=== PATIENT | female | born 1995 | race Caucasian/White ===

== ENCOUNTER 2017-04-25 16:45 | Emergency (ER) | payer BC ==
[~2017-04-25] VITALS: Ht 175.3 cm; Wt 119.4 kg
[~2017-04-25 16:45] MED LIST: AMT50 PO; DOXY100C76 PO; EFF/375 PO; GLC/500 PO
[2017-04-25 17:14] VITALS: TEMP 37.1; Ht 175.3 cm; Wt 119.4 kg
[2017-04-25] MEDS ORDERED: NORE0.1T PO (17:43)
[2017-04-25] MEDS ORDERED: IBUPROFEN 800 MG TAB PO STA (18:28)
[2017-04-25] MEDS ORDERED: ACETAMINOPHEN 500 MG TAB PO STA (18:28)
--- NOTE | 2017-04-25 18:52 | EMERGENCY ROOM VISIT NOTE ---
History Report prepared by Wes: Sahil Pantoja Under the Supervision of: Dr. Dany Love M.D. First contact with patient: 17:59 Chief Complaint: NECK PAIN Stated Complaint: NECK, JAW, ARM PAIN, STIFF NECK HEADACHE History of Present Illness The patient is a 22 year old white female with a past medical history of PCOS, tonsillitis, adenoidectomy, and shingles who presents to the ED with a cc of burning worsening neck pain beginning four days ago. Positive arm pain, neck pain, back pain, ear pain, rash, and nausea with the pain. Negative fever, chills, recent bites, new creams, new detergents, recent travels, cough, vomiting, congestion, sore throat, or itchiness. She does not take any medications, and her last period ended last week. She took Tylenol which did not help. She states that she occasionally drinks alcohol. Source of History: patient Onset: four days ago Position: neck Quality: burning Timing: worsening Associated Symptoms: + neck pain, + nausea, + back pain, + rash, No fevers, No chills, No sorethroat, No cough, No vomiting Note: Associated symptoms: ear pain, arm pain Review of Systems See HPI for pertinent positives and negatives. A total of ten systems were reviewed and were otherwise negative. Past Medical & Surgical Medical Problems: (1) Bronchitis (2) Depression (3) Panic attacks Surgical Problems: (1) History of adenoidectomy (2) Hx of tonsillectomy Family History No pertinent family history Social History Smoking Status: Never Smoker Alcohol Use: occasionally Drug Use: none Marital Status: single Occupation Status: employed Current/Historical Medications Scheduled Norethindrone & Eth Estradiol (Alyacen ), 1 TAB PO DAILY Valacyclovir Hcl (Valtrex), 1 GM PO TID Allergies Coded Allergies: No Known Allergies (Unverified , 08/26/15) Physical Exam Vital Signs Date Time Temp Pulse Resp B/P (MAP) Pulse Ox O2 Delivery O2 Flow Rate FiO2 04/25/17 20:13 75 18 135/85 100 04/25/17 19:02 78 18 137/85 100 Room Air 04/25/17 17:14 37.1 75 18 168/105 97 Room Air Physical Exam GENERAL: Awake, alert, obese, well-appearing, NAD HENT: Posterior pharynx is clear. No tonsillar exudate or swelling..No uvular deviation. No stridor. Normocephalic, atraumatic. EYES: Normal conjunctiva. Sclera non-icteric. NECK: Small blanching macular area over the left lower neck approximately 1cm around. No fluctuance. No tenderness or masses. Supple. No nuchal rigidity. FROM. RESPIRATORY: CTAB, no rhonchi, wheezing, crackles CARDIAC: RRR, no MRG ABDOMEN: Soft, NTND, BS+ MSK: No chest wall TTP, no LE edema NEURO: GCS 15, CN 2-12 intact, moves all 4s on command SKIN: No rash or jaundice noted. Medical Decision & Procedures ER Provider Diagnostic Interpretation: Radiology results as stated below per my review and radiologist interpretation: CHEST 2 VIEWS ROUTINE CLINICAL HISTORY: neck/chest pain pain COMPARISON STUDY: No previous studies for comparison. FINDINGS: The bones soft tissues and hemidiaphragms are normal. The cardiomediastinal silhouette is normal. The lungs are clear. The pulmonary vasculature is normal. IMPRESSION: Negative chest. The above report was generated using voice recognition software. It may contain grammatical, syntax or spelling errors. Electronically signed by: Carlos Luu M.D. 04/25/2017 7:35 PM Dictated Date/Time: 04/25/2017 7:35 PM Laboratory Results 04/25/17 18:40 Red Blood Count 4.65, Mean Corpuscular Volume 91.8, Mean Corpuscular Hemoglobin 31.0, Mean Corpuscular Hemoglobin Concent 33.7, Mean Platelet Volume 11.1, Neutrophils (%) (Auto) 63.6, Lymphocytes (%) (Auto) 28.4, Monocytes (%) (Auto) 7.1, Eosinophils (%) (Auto) 0.3, Basophils (%) (Auto) 0.3, Neutrophils # (Auto) 6.66, Lymphocytes # (Auto) 2.97, Monocytes # (Auto) 0.74, Eosinophils # (Auto) 0.03, Basophils # (Auto) 0.03 04/25/17 18:40 Test 04/25/17 18:40 White Blood Count 10.46 K/uL (4.8-10.8) Red Blood Count 4.65 M/uL (4.2-5.4) Hemoglobin 14.4 g/dL (12.0-16.0) Hematocrit 42.7 % (37-47) Mean Corpuscular Volume 91.8 fL (80-100) Mean Corpuscular Hemoglobin 31.0 pg (25-34) Mean Corpuscular Hemoglobin Concent 33.7 g/dl (32-36) Platelet Count 322 K/uL (130-400) Mean Platelet Volume 11.1 fL (7.4-10.4) Neutrophils (%) (Auto) 63.6 % Lymphocytes (%) (Auto) 28.4 % Monocytes (%) (Auto) 7.1 % Eosinophils (%) (Auto) 0.3 % Basophils (%) (Auto) 0.3 % Neutrophils # (Auto) 6.66 K/uL (1.4-6.5) Lymphocytes # (Auto) 2.97 K/uL (1.2-3.4) Monocytes # (Auto) 0.74 K/uL (0.11-0.59) Eosinophils # (Auto) 0.03 K/uL (0-0.5) Basophils # (Auto) 0.03 K/uL (0-0.2) RDW Standard Deviation 43.9 fL (36.4-46.3) RDW Coefficient of Variation 13.2 % (11.5-14.5) Immature Granulocyte % (Auto) 0.3 % Immature Granulocyte # (Auto) 0.03 K/uL (0.00-0.02) Anion Gap 6.0 mmol/L (3-11) Est Creatinine Clear Calc Drug Dose 154.9 ml/min Estimated GFR () 124.2 Estimated GFR (Non- 107.2 BUN/Creatinine Ratio 9.1 (10-20) Calcium Level 9.3 mg/dl (8.5-10.1) Laboratory results reviewed by me Medications Administered Medications (Trade) Dose Ordered Sig/Isidro Route Start Time Stop Time Status Last Admin Dose Admin Diphenhydramine HCl (Benadryl Cap) 50 mg NOW ONCE PO 04/25/17 18:30 04/25/17 18:31 DC 04/25/17 19:01 50 MG Ibuprofen (Motrin Tab) 800 mg QID STAT PO 04/25/17 18:28 04/25/17 18:30 DC 04/25/17 19:01 800 MG Acetaminophen (Tylenol Tab) 1,000 mg NOW STAT PO 04/25/17 18:28 04/25/17 18:30 DC 04/25/17 19:02 1,000 MG ECG Indication: other (neck pain) Rate (beats per minute): 74 Rhythm: normal sinus Findings: other (Normal intervals. T wave flattening in lead 3, no other continuous changes. No STS changes or TWI) ED Course 1819: The patient was evaluated in room C8. A complete history and physical exam was performed. 1827: Tylenol Tab 1000mg PO, Ibuprofen 800mg PO 1829: Benadryl Cap 50mg PO 1930: I reevaluated the patient, and she states that she is concerned for shingles. 1948: I reevaluated the patient. Discussed results and discharge instructions: She verbalized understanding and agreement. The patient is ready for discharge. Medical Decision The patient is a 22 year old white female with a past medical history of PCOS, tonsillitis, adenoidectomy, and shingles who presents to the ED with a cc of burning worsening neck pain beginning four days ago. Positive arm pain, neck pain, back pain, ear pain, rash, and nausea with the pain. Negative fever, chills, recent bites, new creams, new detergents, recent travels, cough, vomiting, congestion, sore throat, or itchiness. Triage Nursing notes reviewed. The patient's presentation and history were concerning for allergic reaction, insect bite, lymphadenitis, cellulitis, and folliculitis. Patient was seen and evaluated at the bedside. Patient did complain of some mild neck pain. Patient did not have a history of physical concerning for ACS. Patient's EKG was also fairly normal. Patient had a negative chest x-ray. Patient is Wells negative for PE CPE less likely. Patient denies any recent bites but this appears as though it may have been a possible bite or even an allergic reaction. Patient's area of redness less concerning for a cellulitis or even a folliculitis there is no central area of fluctuance. Patient has a prior history of herpes zoster the patient was given a prescription and told that if this worsens she may begin taking it. Patient was injured follow-up discharge, the terms cautions. Patient care patient was safely discharged home. Medication Reconcilliation Current Medication List: was personally reviewed by me Blood Pressure Screening Patient's blood pressure: Elevated blood pressure Blood pressure disposition: Elevated BP felt to be situational Impression Primary Impression: Allergic reaction Additional Impression: Skin irritation Scribe Attestation The scribe's documentation has been prepared under my direction and personally reviewed by me in its entirety. I confirm that the note above accurately reflects all work, treatment, procedures, and medical decision making performed by me. Departure Information Dispostion Home / Self-Care Prescriptions Valacyclovir Hcl (VALTREX) 1 Gm Tab 1 GM PO TID for 7 Days, #21 TAB Prov: Dany Love M.D. 04/25/17 Referrals Tamika Lux PA-C (PCP) Forms HOME CARE DOCUMENTATION FORM, IMPORTANT VISIT INFORMATION, WORK / SCHOOL INSTRUCTIONS Patient Instructions My [facility], Shingles Herpes Zoster Additional Instructions Please return to the emergency department if you have worsening or recurrent symptoms not amenable to at-home treatment. Please call for a follow-up appointment with her primary care physician. Please take your medications as prescribed. If you have other concerns and/or complaints please feel free to also call your primary care physician's office or return the ED for further evaluation, management, and treatment. Take 600 mg Ibuprofen every 6 hours w/ food for no more than two days. You may try benadryl or cortisone cream to affected area. If you do develop vesicles, please consider taking the Valtrex prescription or return for further evaluation. You have been examined and treated today on an emergency basis only. This is not a substitute for, or an effort to provide, complete comprehensive medical care. It is impossible to recognize and treat all injuries or illnesses in a single emergency department visit. It is therefore important that you follow up closely with [facility]. Call as soon as possible for an appointment. Thank you for your time and consideration. I look forward to speaking with you again soon. Please don't hesitate to call us if you have any questions. Work Instructions Return To Work: 1 day Problem Qualifiers Primary Impression: Allergic reaction Encounter type: initial encounter Qualified Codes: T78.40XA - Allergy, unspecified, initial encounter
[2017-04-25 18:56] LABS: BASO % 0.3 %; BASO ABS # 0.03 K/uL (0-0.2); COMPLETE YES; EOS % 0.3 %; HEMATOCRIT 42.7 % (37-47); IG% 0.3 %; LYMPH % 28.4 %; LYMPH ABS # 2.97 K/uL (1.2-3.4); MEAN CELL VOLUME 91.8 fL (80-100); MEAN CORPUSCULAR HGB CONC 33.7 g/dl (32-36); MEAN PLATELET VOLUME 11.1 fL (7.4-10.4); MONO % 7.1 %; NEUT % 63.6 %; PLATELET COUNT 322 K/uL (130-400); RED BLOOD COUNT 4.65 M/uL (4.2-5.4); WHITE BLOOD COUNT 10.46 K/uL (4.8-10.8)
[2017-04-25 19:13] LABS: BUN/CREATININE RATIO 9.1 (10-20); CALCIUM 9.3 mg/dl (8.5-10.1); CREATININE 0.78 mg/dl (0.60-1.20); POTASSIUM 3.7 mmol/L (3.5-5.1)
--- NOTE | 2017-04-25 19:38 | DIAGNOSTIC IMAGING REPORT ---
CHEST 2 VIEWS ROUTINE CLINICAL HISTORY: neck/chest pain pain COMPARISON STUDY: No previous studies for comparison. FINDINGS: The bones soft tissues and hemidiaphragms are normal. The cardiomediastinal silhouette is normal. The lungs are clear. The pulmonary vasculature is normal. IMPRESSION: Negative chest. The above report was generated using voice recognition software. It may contain grammatical, syntax or spelling errors. Electronically signed by: Carlos Luu M.D. 04/25/2017 7:35 PM Dictated Date/Time: 04/25/2017 7:35 PM
[2017-04-25] MEDS ORDERED: VALA1TAB31 PO (19:47)
[2017-04-25 20:13] VITALS: BP 135/85; PULSE 75; O2SAT 100
== END 2017-04-25 20:14 | disposition home or self-care (01) ==
LOC: C.EDB 16:47 → C.EDC 20:14
DX: T78.40XA Allergy, unspecified, initial encounter (principal); X58.XXXA Exposure to other specified factors, initial encounter; L98.9 Disorder of the skin and subcutaneous tissue, unspecified; F32.9 Major depressive disorder, single episode, unspecified; F41.0 Panic disorder [episodic paroxysmal anxiety]; E28.2 Polycystic ovarian syndrome

== ENCOUNTER 2017-08-14 17:17 | Emergency (ER) | payer BC ==
[~2017-08-14] VITALS: Ht 175.3 cm; Wt 124.2 kg
[2017-08-14 17:20] VITALS: BP 159/106; PULSE 109; TEMP 36.5; O2SAT 97; Ht 175.3 cm; Wt 124.2 kg
[2017-08-14] MEDS ORDERED: AMOXICILLIN HOME PACK 250 MG/TAB PO STA (17:38)
[2017-08-14] MEDS ORDERED: OXYCODONE IR HOME PACK PO STA (17:38)
[2017-08-14] MEDS ORDERED: AMOXICILLIN 250 MG CAP PO STA (17:38)
--- NOTE | 2017-08-14 17:41 | EMERGENCY ROOM VISIT NOTE ---
ED Visit Note First contact with patient: 17:27 CHIEF COMPLAINT: "Mouth pain/swelling". HISTORY OF PRESENT ILLNESS: This 22-year-old female patient presented to the emergency department via private vehicle with a progressive toothache for past 4 days. The patient states that she woke up with pain at the right inferior posterior molar region on James. She notes that she has her wisdom teeth that are coming in but have caused her off and on problems but not this persistent or this painful. She states she is tried Orajel, Tylenol and ibuprofen without relief. There is associated chills but no fever. She denies chance of . She notes some radiating pain into the jaw or region and neck. Minimal gum swelling noted. Patient does note that she is tasting a foul drainage. REVIEW OF SYSTEMS: A 6 system review of systems was completed with positives and pertinent negatives listed in the HPI. ALLERGIES: NKDA MEDICATIONS: As noted below PMH: No pertinent SOCIAL HISTORY: Patient is employed and lives locally. PHYSICAL EXAM: Vitals are noted on the nurse's note and reviewed by myself. Vital signs stable. Temperature 36.5C orally. GENERAL: 22-year-old female, in no acute distress, nondiaphoretic, well-developed well-nourished. Mouth: The posterior inferior right erupting wisdom tooth is very carious and the gum is swollen and tender around it, without any discharge or signs of an abscess. The gumline is creating a flap over the lateral aspect of the right posterior inferior molar. The remainder of the pharynx and tonsils are without erythema, edema, or exudate. The airway is patent. There is no facial swelling, cervical or submandibular lymphadenopathy. The patient appears uncomfortable and in pain. The patient has overall fair dental hygiene. EARS: External auditory canals clear, tympanic membranes pearly mccoy without erythema or effusion bilaterally. ED COURSE: Patient was seen and evaluated as above. She presents to us today with right posterior inferior dental pain. Exam reveals an erupting wisdom tooth. It appears that there may be a small infection developing. No evidence of Dimitry angina, meningitis or encephalitis. She is nontoxic on exam. She will be given amoxicillin as well as oxycodone for her management here today. She appears stable for outpatient management. She states that shortly has a referral from her dentist to follow with an oral maxillary facial surgeon. She states that she has had pain like this before but not this bad. I suspect this is because of the pressure created by the eruption of the tooth. She was educated upon management, educated upon worrisome symptoms which to return, had questions of discharge, and was discharged home in good condition. I do recommend she follows up as soon as possible with the oral maxillary facial surgeon for definitive management of her wisdom teeth. There were no red flags identified in the [place] drug monitoring system. In the evaluation and treatment of this patient, the following differential diagnoses were considered: Periapical Abscess, Osteonecrosis of the Jaw, Dental Fracture, Dental Caries, Dimitry's Angina, Vincent's Angina, Facial Cellulitis. Problem List Medical Problems: (1) Bronchitis Status: Resolved (2) Depression Status: Chronic (3) Panic attacks Status: Resolved Surgical Problems: (1) History of adenoidectomy Status: Resolved (2) Hx of tonsillectomy Status: Resolved Current/Historical Medications Scheduled Amoxicillin (Amoxicillin), 500 MG PO TID Norethindrone & Eth Estradiol (Alyacen ), 1 TAB PO DAILY Scheduled PRN Aspirin (Aspirin Ec), 81 MG PO UD PRN for Pain Ibuprofen (Advil), 400 MG PO UD PRN for Pain Oxycodone Ir (Roxicodone Ir), 1-2 TAB PO Q4H PRN for Pain Allergies Coded Allergies: No Known Allergies (Unverified , 08/14/17) Vital Signs Date Time Temp Pulse Resp B/P (MAP) Pulse Ox O2 Delivery O2 Flow Rate FiO2 08/14/17 17:20 36.5 109 18 159/106 97 Room Air Departure Information Impression Primary Impression: Odontalgia Dispostion Home / Self-Care Condition GOOD Prescriptions Amoxicillin (Amoxicillin) 500 Mg Cap 500 MG PO TID for 9 Days, #27 TABS Prov: Marco Zuluaga PA-C 08/14/17 Oxycodone Ir (Roxicodone Ir) 5 Mg Tab 1-2 TAB PO Q4H Y for Pain, #20 TAB For Initial Treatment Prov: Marco Zuluaga PA-C 08/14/17 Referrals Tamika Lux PA-C (PCP) Carl Augustin D.D.S. Stein, Barry R., D.M.D. Patient Instructions My [facility] Additional Instructions You have been treated in the Emergency Department for Dental Pain. You have been prescribed Oxy IR to be used for pain control. This is a narcotic medication. You cannot drive or consume alcohol while on this medicine. This medicine should only be used for pain that cannot be controlled with over-the- counter pain medicines. THE ANTIBIOTIC MAY DECREASE THE EFFECTIVENESS OF YOUR CONTROL. CAUTION IS RECOMMENDED. You were prescribed Amoxicillin to be taken every 8 hours. This is an antibiotic. All antibiotics have the potential to cause diarrhea. Stop this medication and contact a medical provider if you were to develop any significant adverse side effects including: wheezing, shortness of breath, passing out, vomiting, or a diffuse rash. Always take antibiotics as directed and COMPLETE the ENTIRE course regardless of the improvement of your symptoms. For pain control, you can use the following [id number] medicines (if >12 yo): - Regular strength (325mg/tab) Tylenol (acetaminophen) 2 tabs every 4-6 hours as needed. Do not exceed 12 tablets in a 24 hour period. Avoid taking more than 3 grams (3000 mg) of Tylenol per day. This includes any other sources of acetaminophen you may take on a regular basis. - Regular strength (200 mg/tab) Advil (ibuprofen) 1-2 tabs every 4-6 hours as needed. Do not exceed a dose of 3200 mg per day. Refrain from smoking cigarettes or using chewing tobacco until you have been evaluated by your dentist. Keeping beverages lukewarm and consuming soft foods can decrease your pain. Warm compresses over the affected area may offer some relief. You MUST seek evaluation of your dental pain by a dentist following your visit to the Emergency Department. The Emergency Department is not capable of treating dental issues long-term. You should call your dentist as soon as possible to make an appointment for evaluation of your dental pain. Return to the emergency department if you develop the following symptoms despite treatment course outlined above: fever, intractable pain, increased redness, swelling, or purulent discharge.
[2017-08-14] MEDS ORDERED: IBUP-1050 PO (17:42)
[2017-08-14] MEDS ORDERED: ASPI81TA28 PO (17:42)
[2017-08-14] MEDS ORDERED: OXYC1TAB3 PO (17:43)
[2017-08-14] MEDS ORDERED: NORE0.1T PO (17:43)
[2017-08-14] MEDS ORDERED: AMX500 PO (17:43)
--- NOTE | 2017-08-15 15:16 | Pharmacy Progress Note ---
ED Pharmacist Progress Note Date of Service: Aug 15, 2017. Patient called concerned that the Rx for Amoxicillin was not sent to [facility] on [facility] [address] [facility]. I contacted the pharmacy and they did state the Rx for Amoxicillin was received there however it was not filled yet as they needed to add her to their computer system and obtain her insurance information. I called the patient back and gave her this info.
== END 2017-08-14 17:48 | disposition home or self-care (01) ==
LOC: C.EDB 17:19 → C.EDD 17:48
DX: K08.89 Other specified disorders of teeth and supporting structures (principal); F32.9 Major depressive disorder, single episode, unspecified; Z98.890 Other specified postprocedural states; Z79.899 Other long term (current) drug therapy